=== PATIENT | female | born 1990 | race Caucasian/White ===

== ENCOUNTER 2018-02-10 17:23 | Emergency (ER) | payer OTHER ==
[2018-02-10] MEDS: ACETAMINOPHEN 325 MG TAB PO (18:33)
== END 2018-02-10 19:19 | disposition home or self-care (01) ==
LOC: FTE 17:23
DX: O99.612 Diseases of the digestive system complicating pregnancy, second trimester (principal); K42.9 Umbilical hernia without obstruction or gangrene; Z3A.24 24 weeks gestation of pregnancy
CPT/HCPCS: 99282; Z7502

== ENCOUNTER 2018-05-02 18:18 | Outpatient (CLI) | payer OTHER ==
[2018-05-02] MEDS: LACTATED RINGER'S 1,000 ML IV* (18:51)
[2018-05-02 19:10] LABS: ADD UMIC YES; UR ASCORBIC ACID NEGATIVE (NEGATIVE); UR BILIRUBIN (Dip) NEGATIVE (NEGATIVE); UR BLOOD (Dip) NEGATIVE (NEGATIVE); UR CLARITY CLEAR (CLEAR); UR COLOR YELLOW (YELLOW); UR GLUCOSE (Dip) NEGATIVE (NEGATIVE); UR KETONES (Dip) TRACE mg/dL (NEGATIVE); UR LEUKOCYTE ESTERASE (Dip) TRACE Leu/ul (NEGATIVE); UR NITRITE (Dip) NEGATIVE (NEGATIVE); UR RBC 3 /HPF (0-5); UR SPECIFIC GRAVITY (Dip) 1.016 (1.003-1.030); UR SQUAMOUS EPITHELIAL CELL FEW /HPF (FEW); UR TOTAL PROTEIN (Dip) NEGATIVE (NEGATIVE); UR UROBILINOGEN (Dip) NEGATIVE (NEGATIVE); UR WBC 1 /HPF (0-5)
[2018-05-02] MEDS: AL HYDROX/MG HYDROX/SIMETH 30 ML CUP PO (19:37)
== END 2018-05-02 20:07 | disposition home or self-care (01) ==
LOC: OBT 18:18 → L-D 18:20 → OBT 20:07
DX: O36.8130 Decreased fetal movements, third trimester, not applicable or unspecified (principal); Z3A.36 36 weeks gestation of pregnancy
CPT/HCPCS: 76818; 81001; 96360

== ENCOUNTER 2018-05-03 16:47 | Inpatient (IN) | payer OTHER ==
[~2018-05-03 16:47] MED LIST: OXYTOCIN 10 UNIT INJ
[2018-05-03] MEDS ORDERED: CARBOPROST 250 MCG INJ IM ×2 (17:00→21:30)
[2018-05-03] MEDS ORDERED: AMPICILLIN 2 GM/NS (PMX) 100 ML IV (17:00)
[2018-05-03] MEDS ORDERED: MISOPROSTOL 200 MCG TAB PR ×2 (17:00→21:30)
[2018-05-03] MEDS ORDERED: CEFAZOLIN 2 GM/50 ML (PMX) 50 ML IVPB (17:00)
[2018-05-03] MEDS ORDERED: METHYLERGONOVINE 0.2 MG INJ IM (17:00)
[2018-05-03] MEDS ORDERED: OXYTOCIN 30 UNITS/LR 500 ML IV ×4 (17:00→21:30)
[2018-05-03 17:09] LABS: ADD MAN DIFF? NO
[2018-05-03 17:11] LABS: BASOPHILS % 0.2 % (0.0-2.0); EOSINOPHILS % 0.2 % (0.0-7.0); HEMATOCRIT 34.6 % (37.0-47.0); HEMOGLOBIN 11.2 g/dl (12.0-16.0); LYMPHOCYTES # 1.7 10^3/ul (0.8-2.9); LYMPHOCYTES % 13.6 % (15.0-51.0); MEAN CORPUSCULAR HGB CONC 32.4 g/dl (32.0-37.0); MEAN CORPUSCULAR VOLUME 80.3 fl (82.0-101.0); MEAN PLATELET VOLUME 11.1 fl (7.4-10.4); MONOCYTE # 1.2 10^3/ul (0.3-0.9); MONOCYTES % 9.7 % (0.0-11.0); NEUTROPHIL # 9.4 10^3/ul (1.6-7.5); PLATELET COUNT 184 10^3/UL (140-415); RED BLOOD COUNT 4.31 10^6/ul (4.20-5.40); RED CELL DISTRIBUTION WIDTH 15.1 % (11.5-14.5)
[2018-05-03 17:11] LABS: WHITE BLOOD COUNT 12.3 10^3/ul (4.8-10.8)
[2018-05-03] MEDS: LACTATED RINGER'S 1,000 ML IV (17:16)
[2018-05-03] MEDS ORDERED: OXYTOCIN 10 UNIT INJ (17:31)
[2018-05-03] MEDS ORDERED: ONDANSETRON 4 MG INJ (17:31)
[2018-05-03] MEDS ORDERED: morphine SULFATE/PF (10 MG/10 ML) INJ (17:31)
[2018-05-03] MEDS ORDERED: METOCLOPRAMIDE 10 MG INJ (17:31)
[2018-05-03 17:32] LABS: INR 0.96; PARTIAL THROMBOPLASTIN TIME 27.5 Sec (23.0-35.0); PROTIME 12.9 Sec (11.9-14.9)
[2018-05-03 18:07] LABS: HEPATITIS B SURFACE ANTIGEN NEGATIVE (NEGATIVE)
[2018-05-03] MEDS ORDERED: EPHEDrine 25 MG/5 ML SYG (18:09)
[2018-05-03] MEDS ORDERED: KETOROLAC 30 MG INJ (18:36)
[2018-05-03] MEDS: KETOROLAC 30 MG INJ IV (18:51)
[2018-05-03 18:53] LABS: HIV 1&2 ANTIBODY NEGATIVE (NEGATIVE)
[2018-05-03] MEDS ORDERED: EPHEDrine SULFATE 50 MG/5 ML SYG IV (19:00)
[2018-05-03] MEDS ORDERED: morphine 2 MG INJ IV (19:00)
[2018-05-03] MEDS ORDERED: NALOXONE (0.4 MG/ML) INJ IV (19:00)
[2018-05-03] MEDS ORDERED: KETOROLAC 30 MG INJ IV ×2 (19:00→22:30)
[2018-05-03] MEDS: ONDANSETRON 4 MG INJ IV (19:51)
[2018-05-03] MEDS: DIPHENHYDRAMINE 50 MG INJ IV (19:52)
[2018-05-03 20:08] LABS: ADD UMIC YES; UR ASCORBIC ACID NEGATIVE (NEGATIVE); UR BILIRUBIN (Dip) NEGATIVE (NEGATIVE); UR BLOOD (Dip) NEGATIVE (NEGATIVE); UR CLARITY CLEAR (CLEAR); UR COLOR YELLOW (YELLOW); UR GLUCOSE (Dip) 2+ mg/dL (NEGATIVE); UR KETONES (Dip) TRACE mg/dL (NEGATIVE); UR LEUKOCYTE ESTERASE (Dip) NEGATIVE Leu/ul (NEGATIVE); UR MUCUS FEW /HPF (NONE SEEN); UR NITRITE (Dip) NEGATIVE (NEGATIVE); UR RBC 1 /HPF (0-5); UR TOTAL PROTEIN (Dip) 2+ mg/dl (NEGATIVE); UR UROBILINOGEN (Dip) NEGATIVE (NEGATIVE); UR WBC 2 /HPF (0-5)
[2018-05-03 20:22] LABS: AMPHETAMINE/METHAMPHETAMINE Negative (NEGATIVE); BARBITURATES Negative (NEGATIVE); BENZODIAZEPINES Negative (NEGATIVE); CANNABINOIDS Negative (NEGATIVE); COCAINE Negative (NEGATIVE); OPIATES Negative (NEGATIVE)
[2018-05-03] MEDS: morphine SULFATE/PF (10 MG/10 ML) INJ SPINAL (21:00)
[2018-05-03] MEDS ORDERED: NACL 0.9% 3 ML SYG IV (21:30)
[2018-05-03] MEDS ORDERED: LANOLIN HPA 1 PKT TOP (21:30)
[2018-05-03] MEDS: OXYTOCIN 30 UNITS/LR 500 ML IV (22:31)
[2018-05-04] MEDS ORDERED: IBUPROFEN 600 MG TAB PO
[2018-05-04] MEDS: KETOROLAC 30 MG INJ IV ×3 (06:03→16:43)
[2018-05-04 06:20] LABS: ADD MAN DIFF? NO
[2018-05-04 06:26] LABS: WHITE BLOOD COUNT 14.8 10^3/ul (4.8-10.8)
[2018-05-04 06:26] LABS: BASOPHILS % 0.2 % (0.0-2.0); HEMATOCRIT 29.4 % (37.0-47.0); HEMOGLOBIN 9.5 g/dl (12.0-16.0); LYMPHOCYTES # 1.3 10^3/ul (0.8-2.9); LYMPHOCYTES % 8.7 % (15.0-51.0); MEAN CORPUSCULAR HEMOGLOBIN 26.3 pg (29.0-33.0); MEAN CORPUSCULAR HGB CONC 32.3 g/dl (32.0-37.0); MEAN CORPUSCULAR VOLUME 81.4 fl (82.0-101.0); MEAN PLATELET VOLUME 10.9 fl (7.4-10.4); MONOCYTE # 1.1 10^3/ul (0.3-0.9); MONOCYTES % 7.6 % (0.0-11.0); NEUTROPHIL # 12.3 10^3/ul (1.6-7.5); PLATELET COUNT 152 10^3/UL (140-415); RED BLOOD COUNT 3.61 10^6/ul (4.20-5.40)
[2018-05-04] MEDS: PRENATAL VITAMIN PO (09:00)
[2018-05-04] MEDS: SENNA/DOCUSATE NA (8.6MG/50MG) TAB PO ×2 (09:00→21:30)
[2018-05-04] MEDS: INFLUENZA VIRUS VACCINE 0.5 ML (DISPENSING) IM* (14:20)
[2018-05-04 15:40] LABS: RAPID PLASMA REAGIN NONREACTIVE (NR)
[2018-05-04] MEDS: morphine 2 MG INJ IV (15:51)
[2018-05-04] MEDS: METHYLERGONOVINE 0.2 MG INJ IM (20:01)
[2018-05-04] MEDS: OXYCODONE/ACETAMINOPHEN (5/325) TAB PO (23:17)
[2018-05-05] MEDS: BISACODYL 10 MG SUPP PR (04:52)
[2018-05-05] MEDS: OXYCODONE/ACETAMINOPHEN (5/325) TAB PO ×3 (08:02→18:14)
[2018-05-05 10:36] LABS: RUBELLA ANTIBODY - IGG <0.90 index
[2018-05-05] MEDS: SENNA/DOCUSATE NA (8.6MG/50MG) TAB PO ×2 (10:58→20:52)
[2018-05-05] MEDS: PRENATAL VITAMIN PO (10:58)
[2018-05-05 16:05] LABS: ADD MAN DIFF? NO
[2018-05-05 16:12] LABS: BASOPHILS % 0.2 % (0.0-2.0); EOSINOPHILS # 0.1 10^3/ul (0.0-0.5); EOSINOPHILS % 0.4 % (0.0-7.0); HEMATOCRIT 29.1 % (37.0-47.0); HEMOGLOBIN 9.2 g/dl (12.0-16.0); LYMPHOCYTES # 1.6 10^3/ul (0.8-2.9); LYMPHOCYTES % 10.9 % (15.0-51.0); MEAN CORPUSCULAR HEMOGLOBIN 26.1 pg (29.0-33.0); MEAN CORPUSCULAR HGB CONC 31.6 g/dl (32.0-37.0); MEAN CORPUSCULAR VOLUME 82.4 fl (82.0-101.0); MEAN PLATELET VOLUME 10.9 fl (7.4-10.4); MONOCYTE # 1.1 10^3/ul (0.3-0.9); MONOCYTES % 7.8 % (0.0-11.0); NEUTROPHIL # 11.5 10^3/ul (1.6-7.5); NEUTROPHILS % 80.1 % (39.0-77.0); PLATELET COUNT 217 10^3/UL (140-415); RED BLOOD COUNT 3.53 10^6/ul (4.20-5.40); RED CELL DISTRIBUTION WIDTH 15.5 % (11.5-14.5)
[2018-05-05 16:12] LABS: WHITE BLOOD COUNT 14.4 10^3/ul (4.8-10.8)
[2018-05-06] MEDS ORDERED: BISACODYL 10 MG SUPP PR (04:40)
[2018-05-06] MEDS: OXYCODONE/ACETAMINOPHEN (5/325) TAB PO ×3 (04:43→17:28)
[2018-05-06] MEDS: DIPHTH/TET/ACEL PERTUSS (ADULT) 0.5 ML VIAL IM* (09:00)
[2018-05-06] MEDS: SENNA/DOCUSATE NA (8.6MG/50MG) TAB PO ×2 (09:37→21:52)
[2018-05-06] MEDS: PRENATAL VITAMIN PO (09:37)
[2018-05-07] MEDS: OXYCODONE/ACETAMINOPHEN (5/325) TAB PO ×2 (00:47→10:36)
[2018-05-07] MEDS: SENNA/DOCUSATE NA (8.6MG/50MG) TAB PO (09:23)
[2018-05-07] MEDS: BISACODYL 10 MG SUPP PR (09:23)
[2018-05-07] MEDS: PRENATAL VITAMIN PO (09:23)
[2018-05-07 11:11] LABS: RUBELLA ANTIBODY - IGM <20.00 AU/mL
== END 2018-05-07 11:40 | disposition home or self-care (01) | DRG 788 ==
LOC: OBT 16:47 → L-D 16:49 → OBT 16:47 → L-D 16:48 → PP1 20:54
PROVIDERS: Obstetrics & Gynecology
PROC: 10D00Z1 Extraction of Products of Conception, Low, Open Approach (ICD-10-PCS; principal; 2018-05-03)
DX: O34.219 Maternal care for unspecified type scar from previous cesarean delivery (principal); G89.18 Other acute postprocedural pain; R42 Dizziness and giddiness; Z3A.36 36 weeks gestation of pregnancy; Z37.0 Single live birth; Z23 Encounter for immunization
CPT/HCPCS: 80307; 81001; 85025; 85610; 85730; 86592; 86703; 86762; 86850; 86900; 86901; 87340; 90715; 99464